=== PATIENT | female | born 1970 | race Caucasian/White ===

== ENCOUNTER → 2017-01-05 | Outpatient (CLI) | payer MEDICARE, MEDICAID ==
--- NOTE | 2017-01-05 12:42 | RADRPT ---
PROCEDURE: XR pelvis/left hip. CLINICAL INDICATION: Hip pain TECHNIQUE: AP pelvis/AP and lateral left hip view available for review. 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 There is cerclage wire fixation of the greater trochanter. There is no evidence of loos ening of the prosthesis. There is no evidence of hardware failure. There is normal mineralization, a rchitecture and alignment. No fractures, dislocation or osseous lesions are identified. The joint s are unremarkable. There are normal soft tissues. 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 Otherwise unremarkable examination. RPTAT: [facility] .Sarkis Renteria MD, MD Date Time Electronically viewed and signed by .Sarkis Renteria MD, on 01/05/2017 12:41 .B/
== END | disposition home or self-care (01) ==
LOC: HKI 10:23
PROVIDERS: ATTEND Orthopaedic Surgery
DX: M21.752 Unequal limb length (acquired), left femur (principal); Z96.642 Presence of left artificial hip joint
CPT/HCPCS: 73502; G0463